=== PATIENT | female | born 1965 | race Caucasian/White ===

== ENCOUNTER 2020-07-16 17:23 | Emergency (ER) | payer OTHER ==
--- NOTE | 2020-07-17 13:04 | CR ---
CLINICAL DATA: Pain. LEFT FOOT, 16 JULY 2020: There is a displaced oblique fracture through the distal diaphysis of the 5th metatarsal. There is also a nondisplaced transverse fracture through the base of the 5th metatarsal. No other acute abnormalities. Job: [id number] MTDD
== END 2020-07-16 18:25 | disposition home or self-care (01) ==
LOC: LB.ED 17:23 → EDBD 17:23 → LB.ED 18:25
DX: S92.352A Displaced fracture of fifth metatarsal bone, left foot, initial encounter for closed fracture (principal); W10.9XXA Fall (on) (from) unspecified stairs and steps, initial encounter
CPT/HCPCS: 73630-LT; 99283-25